=== PATIENT | female | born 1955 | race Caucasian/White ===

== ENCOUNTER 2022-10-03 10:52 | Emergency (ER) | payer MEDICARE, OTHER ==
[~2022-10-03] VITALS: Ht 162.6 cm; Wt 93.0 kg
[2022-10-03] MEDS ORDERED: IV NS 0.9% 500 ML BAG IV ONE (11:00)
[2022-10-03 11:26] LABS: BASOPHILS # (AUTO) 0.1 K/uL (0.0-0.2); BASOPHILS % (AUTO) 0.8 % (0.0-2.0); HEMATOCRIT 34 % (33-45); HEMOGLOBIN 11.3 g/dL (11.5-14.8); LYMPHOCYTES # (AUTO) 1.9 K/uL (0.8-4.8); LYMPHOCYTES % (AUTO) 18.6 % (20.0-44.0); MEAN CORPUSCULAR HGB CONC 33 g/dl (31.0-36.0); MEAN CORPUSCULAR VOLUME 91 fL (82-100); MONOCYTES # (AUTO) 0.7 K/uL (0.1-1.30); MONOCYTES % (AUTO) 7.2 % (2.0-12.0); NEUTROPHILS # (AUTO) 7.1 K/uL (1.8-8.9); NEUTROPHILS % (AUTO) 69.4 % (43.0-81.0); PLATELET COUNT (AUTO) 336 K/uL (150-450); RED BLOOD CELL COUNT(AUTO) 3.77 MIL/uL (4.0-5.2); WHITE BLOOD COUNT (AUTO) 10.2 K/uL (4.3-11.0)
[2022-10-03 11:29] LABS: CALCIUM, SERUM 9.8 mg/dL (8.5-10.1); CARBON DIOXIDE 23 mmol/L (21-32); CHLORIDE 101 mmol/L (98-107); CREATININE 1.5 mg/dL (0.6-1.3); GLUCOSE 175 mg/dL (74-106); POTASSIUM 3.8 mmol/L (3.5-5.1); SODIUM SERUM 135 mmol/L (136-145); UREA NITROGEN, BLOOD 46 mg/dL (7-18)
[2022-10-03 11:35] LABS: ALANINE AMINOTRANSFERASE 12 U/L (12-78); ALBUMIN 2.7 g/dL (3.4-5.0); ALKALINE PHOSPHATASE 86 U/L (46-116); ASPARTATE AMINOTRANSFERASE 15 U/L (15-37); BILIRUBIN,DIRECT 0.2 mg/dL (0.0-0.2); BILIRUBIN,TOTAL 0.5 mg/dL (0.2-1.0)
[2022-10-03] MEDS ORDERED: SENN-261 PO (12:38)
[2022-10-03] MEDS ORDERED: GABA-532 PO (12:38)
[2022-10-03] MEDS ORDERED: FLUT1DIS5 IH (12:38)
[2022-10-03] MEDS ORDERED: DOCU100T2 PO (12:38)
[2022-10-03] MEDS ORDERED: INSU100V11 SQ (12:38)
[2022-10-03] MEDS ORDERED: MAG-5 PO (12:38)
[2022-10-03] MEDS ORDERED: MAGN400O6 PO (12:38)
[2022-10-03] MEDS ORDERED: ACET325C7 PO (12:38)
[2022-10-03] MEDS ORDERED: BISA10SU11 RC (12:38)
[2022-10-03] MEDS ORDERED: TIZA-180 PO (12:38)
[2022-10-03] MEDS ORDERED: ASPI1TAB2 PO (12:38)
[2022-10-03] MEDS ORDERED: ARIP10TA9 PO (12:38)
[2022-10-03] MEDS ORDERED: MULT-754 PO (12:38)
[2022-10-03] MEDS ORDERED: NA P133E RC (12:38)
[2022-10-03] MEDS ORDERED: ATOR20TA PO (12:38)
[2022-10-03] MEDS ORDERED: CARV6.252 PO (12:38)
[2022-10-03] MEDS ORDERED: HEPA500039 SQ (12:38)
[2022-10-03] MEDS ORDERED: VENTOLIN HFA INH (12:38)
[2022-10-03] MEDS ORDERED: FERR325T23 PO (12:38)
[2022-10-03] MEDS ORDERED: CHOL100043 PO (12:38)
[2022-10-03] MEDS ORDERED: DICLOFENAC SODIUM TP (12:38)
[2022-10-03] MEDS ORDERED: GLUC1KIT IM (12:38)
[2022-10-03] MEDS ORDERED: IODOPHOR BNOSTRILS (12:38)
[2022-10-03] MEDS ORDERED: FURO-145 PO (12:38)
[2022-10-03] MEDS ORDERED: BLOO-668 IN (12:38)
--- NOTE | 2022-10-03 12:59 | NUR ---
CALLED [facility] FOR TRANSPORT CREW AT DESTINATION IN ER AND WILL TRANSPORT AFTER CLEARING CURRENT CALL.
--- NOTE | 2022-10-03 13:17 | NUR ---
REPORT GIVEN TO EMT FOR [facility] AND TRANSPORT
[2022-10-03 13:20] VITALS: BP 134/70; TEMP 98; O2SAT 98
== END 2022-10-03 13:21 | disposition home or self-care (01) ==
LOC: ER 10:54
DX: R20.0 Anesthesia of skin (principal); E11.22 Type 2 diabetes mellitus with diabetic chronic kidney disease; N18.9 Chronic kidney disease, unspecified; I50.9 Heart failure, unspecified; E66.01 Morbid (severe) obesity due to excess calories; F20.9 Schizophrenia, unspecified; F32.9 Major depressive disorder, single episode, unspecified; E78.5 Hyperlipidemia, unspecified; D64.9 Anemia, unspecified; Z88.2 Allergy status to sulfonamides; Z88.1 Allergy status to other antibiotic agents; Z68.35 Body mass index [BMI] 35.0-35.9, adult
CPT/HCPCS: 36415; 71045-TC; 80048-TC; 80076-TC; 83605-TC; 84484-TC; 85025-TC; 85730-TC; 87040-TC

== ENCOUNTER 2023-02-06 15:45 | Inpatient (IN) | payer MEDICARE, OTHER ==
[~2023-02-06] VITALS: Ht 167.6 cm; Wt 78.0 kg
[~2023-02-06 15:45] MED LIST: ACET325C7 PO; ARIP10TA9 PO; ASPI1TAB2 PO; ATOR20TA PO; BISA10SU11 RC; BLOO-668 IN; CARV6.252 PO; CHOL100043 PO; DICLOFENAC SODIUM TP; DOCU100T2 PO; FERR325T23 PO; FLUT1DIS5 IH; FURO-145 PO; GABA-532 PO; GLUC1KIT IM; HEPA500039 SQ; INSU100V11 SQ; IODOPHOR BNOSTRILS; MAG-5 PO; MAGN400O6 PO; MULT-754 PO; NA P133E RC; SENN-261 PO; TIZA-180 PO; VENTOLIN HFA INH
[2023-02-06] MEDS ORDERED: ACETAMINOPHEN 325 MG TABLET PO ONE (16:00)
[2023-02-06] MEDS ORDERED: VANCOMYCIN 1 GM in IV D5W 250 ML IV ONE (16:00)
[2023-02-06] MEDS ORDERED: CEFEPIME 1 GM in IV D5W 50 ML IV ONE ×2 (16:00→21:00)
[2023-02-06] MEDS ORDERED: IV NS 0.9% 1,000 ML BAG IV ONE (16:00)
[2023-02-06] MEDS ORDERED: [UNRECOGNIZED DRUG - CODE] TP (16:22)
[2023-02-06] MEDS ORDERED: ENOX30DI SQ (16:22)
[2023-02-06] MEDS ORDERED: ALBU18HF2 IH (16:22)
[2023-02-06] MEDS ORDERED: TIZA-180 PO (16:22)
[2023-02-06] MEDS ORDERED: NUT.237L30 PO (16:22)
[2023-02-06] MEDS ORDERED: ACETAMINOPHEN ES 500 MG TABLET ONE (16:23)
[2023-02-06 16:41] LABS: BASOPHILS % (AUTO) 0.5 % (0.0-2.0); EOSINOPHILS % (AUTO) 0.2 % (0.0-6.0); HEMATOCRIT 36 % (33-45); HEMOGLOBIN 11.7 g/dL (11.5-14.8); LYMPHOCYTES # (AUTO) 1.2 K/uL (0.8-4.8); LYMPHOCYTES % (AUTO) 13.4 % (20.0-44.0); MEAN CORPUSCULAR HEMOGLOBIN 30 PG (26.0-33.0); MEAN CORPUSCULAR HGB CONC 32 g/dl (31.0-36.0); MEAN CORPUSCULAR VOLUME 92 fL (82-100); MONOCYTES # (AUTO) 0.9 K/uL (0.1-1.30); MONOCYTES % (AUTO) 9.9 % (2.0-12.0); NEUTROPHILS # (AUTO) 6.8 K/uL (1.8-8.9); PLATELET COUNT (AUTO) 239 K/uL (150-450); RED BLOOD CELL COUNT(AUTO) 3.95 MIL/uL (4.0-5.2); RED CELL DISTRIBUTION WIDTH 13.4 % (11.5-15.0); WHITE BLOOD COUNT (AUTO) 8.9 K/uL (4.3-11.0)
[2023-02-06 16:51] LABS: INR 1.09 (0.91-1.10); PARTIAL THROMBOPLASTIN TIME 40.1 SEC (24.3-34.3); PROTHROMBIN TIME 11.5 SECS (9.2-11.1)
[2023-02-06 17:02] LABS: CALCIUM, SERUM 8.8 mg/dL (8.5-10.1); CARBON DIOXIDE 21 mmol/L (21-32); CHLORIDE 106 mmol/L (98-107); CREATININE 1.2 mg/dL (0.6-1.3); GLUCOSE 133 mg/dL (74-106); SODIUM SERUM 137 mmol/L (136-145); UREA NITROGEN, BLOOD 25 mg/dL (7-18)
[2023-02-06 17:08] LABS: ALANINE AMINOTRANSFERASE 9 U/L (12-78); ALBUMIN 2.7 g/dL (3.4-5.0); ALKALINE PHOSPHATASE 104 U/L (46-116); ASPARTATE AMINOTRANSFERASE 20 U/L (15-37); BILIRUBIN,DIRECT 0.2 mg/dL (0.0-0.2); BILIRUBIN,TOTAL 0.4 mg/dL (0.2-1.0); TOTAL PROTEIN, SERUM 7.3 g/dL (6.4-8.2)
[2023-02-06 17:10] LABS: LACTIC ACID 1.1 mmol/L (0.4-2.0)
[2023-02-06] MEDS ORDERED: ACETAMINOPHEN 325 MG TABLET PO PRN (17:30)
[2023-02-06] MEDS ORDERED: MAGNESIUM HYDROXIDE 30 ML UDC PO PRN (17:30)
[2023-02-06] MEDS ORDERED: Z GUARD REMEDY 4 OZ OINT TP PRN (17:30)
[2023-02-06] MEDS ORDERED: hydrALAZINE HCL IV 20 MG VIAL IV PRN (17:30)
[2023-02-06] MEDS ORDERED: ONDANSETRON HCL/PF 4 MG/2 ML VIAL IVP PRN (17:30)
[2023-02-06] MEDS ORDERED: IV NS 0.9% 1,000 ML IV PRN (17:30)
[2023-02-06 20:40] VITALS: BP 114/49; TEMP 98.4; O2SAT 97
[2023-02-06] MEDS ORDERED: ENOXAPARIN SODIUM 40 MG/0.4 ML DISP.SYRIN SQ SCH (21:00)
[2023-02-06 21:44] VITALS: BP 114/49; TEMP 98.4; O2SAT 97
[2023-02-07] VITALS (7 sets, daily range): BP systolic 125–161; BP diastolic 50–94; TEMP 97.9–99.5; O2SAT 94–100
[2023-02-07] MEDS: VANCOMYCIN HCL 0.75 GM in IV D5W 250 ML IV SCH ×2 (04:15→16:14)
[2023-02-07 07:08] LABS: BASOPHILS % (AUTO) 0.4 % (0.0-2.0); EOSINOPHILS # (AUTO) 0.1 K/uL (0.0-0.7); EOSINOPHILS % (AUTO) 0.9 % (0.0-6.0); HEMATOCRIT 37 % (33-45); HEMOGLOBIN 11.6 g/dL (11.5-14.8); LYMPHOCYTES # (AUTO) 1.3 K/uL (0.8-4.8); LYMPHOCYTES % (AUTO) 15.7 % (20.0-44.0); MEAN CORPUSCULAR HEMOGLOBIN 30 PG (26.0-33.0); MEAN CORPUSCULAR HGB CONC 32 g/dl (31.0-36.0); MEAN CORPUSCULAR VOLUME 93 fL (82-100); MONOCYTES # (AUTO) 1.5 K/uL (0.1-1.30); NEUTROPHILS # (AUTO) 5.6 K/uL (1.8-8.9); PLATELET COUNT (AUTO) 171 K/uL (150-450); RED BLOOD CELL COUNT(AUTO) 3.92 MIL/uL (4.0-5.2); RED CELL DISTRIBUTION WIDTH 14.3 % (11.5-15.0); WHITE BLOOD COUNT (AUTO) 8.5 K/uL (4.3-11.0)
[2023-02-07] MEDS: PANTOPRAZOLE 40 MG TABLET.DR PO SCH ×2 (07:30→08:28)
[2023-02-07 07:35] LABS: CALCIUM, SERUM 8.8 mg/dL (8.5-10.1); CREATININE 1.1 mg/dL (0.6-1.3)
[2023-02-07 07:36] LABS: MAGNESIUM 2.2 mg/dL (1.8-2.4); PHOSPHORUS 3.5 mg/dL (2.5-4.9)
[2023-02-07 07:56] LABS: THYROID STIMULATING HORMONE 0.731 uIU/mL (0.358-3.74)
[2023-02-07] MEDS: CEFEPIME 2 GM in IV D5W 100 ML IV SCH ×2 (08:28→22:03)
[2023-02-07] MEDS ORDERED: HYDROGEL DRESSING 90 GM TUBE TP PRN (10:30)
[2023-02-07] MEDS ORDERED: BISACODYL SUPP (10 MG) 10 MG/SUPP.RECT SUPP.RECT RC PRN (11:30)
[2023-02-07] MEDS ORDERED: ALBUTEROL FS 2.5 MG/3 ML VIAL.NEB NEB PRN (11:30)
[2023-02-07] MEDS ORDERED: IPRATROPIUM NEB FS 0.5 MG/2.5 ML AMPUL.NEB NEB PRN (11:30)
[2023-02-07] MEDS: HYDROGEL DRESSING 90 GM TUBE TP SCH (11:36)
[2023-02-07] MEDS: BLOOD SUGAR DIAGNOSTIC 1 EACH STRIP IN SCH ×3 (11:48→22:22)
[2023-02-07] MEDS: DEXTROSE 50%-WATER 50 ML DISP.SYRIN IV PRN (11:52)
[2023-02-07] MEDS ORDERED: ACETAMINOPHEN 325 MG TABLET PO PRN (12:00)
[2023-02-07] MEDS: ENOXAPARIN SODIUM 40 MG/0.4 ML DISP.SYRIN SQ SCH (12:34)
[2023-02-07] MEDS ORDERED: [UNRECOGNIZED DRUG - OTHER] PO SCH (13:00)
[2023-02-07] MEDS ORDERED: NUT TX GLUC INTOLER LAC FR SOY PO SCH (13:00)
[2023-02-07] MEDS: ALBUTEROL FS 2.5 MG/3 ML VIAL.NEB NEB SCH ×2 (13:30→19:30)
[2023-02-07] MEDS: TIZANIDINE HCL 4 MG TABLET PO SCH (17:00)
[2023-02-07] MEDS: GLUCERNA SHAKE 237 ML CAN PO SCH (17:00)
[2023-02-07] MEDS: CHOLECALCIFEROL 1,000 UNIT TABLET (VIT D3) PO SCH (17:00)
[2023-02-07] MEDS: GABAPENTIN 100 MG CAPSULE PO SCH (17:00)
[2023-02-07] MEDS: BUDESONIDE RESPULE INH 0.5 MG/2 ML AMPUL.NEB IH SCH (17:00)
[2023-02-07 19:15] LABS: APPEARANCE,URINE CLOUDY (CLEAR); BILIRUBIN,URINE NEGATIVE (NEGATIVE); BLOOD, URINE 1+ Ery/uL (NEGATIVE); COLOR,URINE YELLOW (YELLOW); KETONES,URINE NEGATIVE (NEGATIVE); LEUKOCYTE ESTERASE ,URINE 3+ (NEGATIVE); NITRITE, URINE NEGATIVE (NEGATIVE); PH,URINE 5.5 (5.0-8.0); PROTEIN,URINE 1+ mg/dl (NEGATIVE); UGLUCOSE NEGATIVE (NEGATIVE); UROBILINOGEN,URINE 0.2 EU/dL (0.2)
[2023-02-07 19:22] LABS: ADD URINE CULTURE YES; BACTERIA,URINE 3+ /HPF (None Seen); RBC,URINE 21-50 /HPF (0-2); SQUAMOUS EPITHELIAL CELL,UR 0-2 /HPF (None Seen); WBC,URINE 51-80 /HPF (0-3)
[2023-02-07] MEDS: INSULIN REGULAR, HUMAN 100 UNIT/ML 3 ML VIAL SQ PRN (22:24)
[2023-02-07] MEDS: SENNOSIDES 8.6 MG TABLET PO SCH (22:41)
[2023-02-07] MEDS: ATORVASTATIN 10 MG TABLET PO SCH (22:41)
[2023-02-08] VITALS (9 sets, daily range): BP systolic 99–145; BP diastolic 57–72; TEMP 97.9–98.4; O2SAT 95–100
[2023-02-08] MEDS: ALBUTEROL FS 2.5 MG/3 ML VIAL.NEB NEB SCH ×4 (01:30→19:30)
[2023-02-08 04:35] LABS: CALCIUM, SERUM 8.5 mg/dL (8.5-10.1); CREATININE 1.1 mg/dL (0.6-1.3); MAGNESIUM 1.8 mg/dL (1.8-2.4); PHOSPHORUS 2.5 mg/dL (2.5-4.9); POTASSIUM 3.8 mmol/L (3.5-5.1)
[2023-02-08] MEDS: VANCOMYCIN HCL 0.75 GM in IV D5W 250 ML IV SCH (05:00)
[2023-02-08 05:10] LABS: BASOPHILS # (AUTO) 0.1 K/uL (0.0-0.2); BASOPHILS % (AUTO) 0.9 % (0.0-2.0); EOSINOPHILS % (AUTO) 0.3 % (0.0-6.0); HEMATOCRIT 35 % (33-45); HEMOGLOBIN 11.4 g/dL (11.5-14.8); LYMPHOCYTES # (AUTO) 0.9 K/uL (0.8-4.8); LYMPHOCYTES % (AUTO) 15.1 % (20.0-44.0); MEAN CORPUSCULAR HEMOGLOBIN 30 PG (26.0-33.0); MEAN CORPUSCULAR HGB CONC 33 g/dl (31.0-36.0); MEAN CORPUSCULAR VOLUME 90 fL (82-100); MONOCYTES # (AUTO) 0.6 K/uL (0.1-1.30); MONOCYTES % (AUTO) 10.4 % (2.0-12.0); NEUTROPHILS # (AUTO) 4.2 K/uL (1.8-8.9); NEUTROPHILS % (AUTO) 73.3 % (43.0-81.0); PLATELET COUNT (AUTO) 185 K/uL (150-450); RED BLOOD CELL COUNT(AUTO) 3.84 MIL/uL (4.0-5.2); RED CELL DISTRIBUTION WIDTH 13.8 % (11.5-15.0); WHITE BLOOD COUNT (AUTO) 5.8 K/uL (4.3-11.0)
[2023-02-08] MEDS: BLOOD SUGAR DIAGNOSTIC 1 EACH STRIP IN SCH ×4 (06:40→21:21)
[2023-02-08] MEDS: INSULIN REGULAR, HUMAN 100 UNIT/ML 3 ML VIAL SQ PRN (06:41)
[2023-02-08] MEDS: BUDESONIDE RESPULE INH 0.5 MG/2 ML AMPUL.NEB IH SCH ×2 (07:14→17:00)
[2023-02-08] MEDS: PANTOPRAZOLE 40 MG TABLET.DR PO SCH (07:46)
[2023-02-08] MEDS: GLUCERNA SHAKE 237 ML CAN PO SCH ×2 (08:41→17:12)
[2023-02-08] MEDS: GABAPENTIN 100 MG CAPSULE PO SCH ×3 (09:00→17:12)
[2023-02-08] MEDS: ARIPIPRAZOLE 5 MG TABLET PO SCH ×2 (09:00→09:02)
[2023-02-08] MEDS: CHOLECALCIFEROL 1,000 UNIT TABLET (VIT D3) PO SCH ×3 (09:00→17:12)
[2023-02-08] MEDS: DOCUSATE SODIUM 100 MG CAPSULE PO SCH ×2 (09:00→09:02)
[2023-02-08] MEDS: TIZANIDINE HCL 4 MG TABLET PO SCH ×3 (09:00→17:12)
[2023-02-08] MEDS: MULTIVITAMINS,THERAGRAN 1 UDTAB TABLET PO SCH (09:01)
[2023-02-08] MEDS: FUROSEMIDE 20 MG TABLET PO SCH (09:03)
[2023-02-08] MEDS: CEFEPIME 2 GM in IV D5W 100 ML IV SCH ×2 (09:04→23:16)
[2023-02-08] MEDS: HYDROGEL DRESSING 90 GM TUBE TP SCH (10:46)
[2023-02-08] MEDS: ENOXAPARIN SODIUM 40 MG/0.4 ML DISP.SYRIN SQ SCH (12:32)
[2023-02-08] MEDS ORDERED: VANCOMYCIN HCL 0.75 GM in IV D5W 250 ML IV SCH (17:00)
[2023-02-08] MEDS: DEXTROSE 50%-WATER 50 ML DISP.SYRIN IV PRN (21:20)
[2023-02-08] MEDS: ATORVASTATIN 10 MG TABLET PO SCH (21:35)
[2023-02-08] MEDS: SENNOSIDES 8.6 MG TABLET PO SCH (21:35)
[2023-02-09] MEDS: ALBUTEROL FS 2.5 MG/3 ML VIAL.NEB NEB SCH ×4 (01:30→19:30)
[2023-02-09 02:14] VITALS: O2SAT 99
[2023-02-09] MEDS: DEXTROSE 50%-WATER 50 ML DISP.SYRIN IV PRN (06:11)
[2023-02-09] MEDS: BLOOD SUGAR DIAGNOSTIC 1 EACH STRIP IN SCH ×4 (06:50→21:35)
[2023-02-09 07:30] VITALS: BP_SYST 112; BP_SYST 118; BP_DIAS 66; BP_DIAS 69; TEMP 98.2; TEMP 98.4; O2SAT 100; O2SAT 98
[2023-02-09] MEDS: ARIPIPRAZOLE 5 MG TABLET PO SCH (08:20)
[2023-02-09] MEDS: MULTIVITAMINS,THERAGRAN 1 UDTAB TABLET PO SCH (08:20)
[2023-02-09] MEDS: DOCUSATE SODIUM 100 MG CAPSULE PO SCH (08:20)
[2023-02-09] MEDS: CHOLECALCIFEROL 1,000 UNIT TABLET (VIT D3) PO SCH ×2 (08:20→16:01)
[2023-02-09] MEDS: FERROUS SULFATE (325 MG) 325 MG/TAB TABLET PO SCH (08:20)
[2023-02-09] MEDS: TIZANIDINE HCL 4 MG TABLET PO SCH ×2 (08:21→16:01)
[2023-02-09] MEDS: GLUCERNA SHAKE 237 ML CAN PO SCH ×2 (08:21→17:09)
[2023-02-09] MEDS: PANTOPRAZOLE 40 MG TABLET.DR PO SCH (08:21)
[2023-02-09] MEDS: FUROSEMIDE 20 MG TABLET PO SCH (08:21)
[2023-02-09] MEDS: GABAPENTIN 100 MG CAPSULE PO SCH ×2 (08:21→16:01)
[2023-02-09] MEDS: CEFEPIME 2 GM in IV D5W 100 ML IV SCH ×2 (08:24→20:09)
[2023-02-09] MEDS: IV D5/ 0.9% NACL 1,000 ML IV PRN ×2 (09:41→21:28)
[2023-02-09] MEDS: HYDROGEL DRESSING 90 GM TUBE TP SCH (11:11)
[2023-02-09] MEDS: ENOXAPARIN SODIUM 40 MG/0.4 ML DISP.SYRIN SQ SCH (11:31)
[2023-02-09] MEDS: BUDESONIDE RESPULE INH 0.5 MG/2 ML AMPUL.NEB IH SCH (19:30)
[2023-02-09 20:00] VITALS: BP 140/66; TEMP 98.4; O2SAT 97
[2023-02-09] MEDS: ATORVASTATIN 10 MG TABLET PO SCH ×2 (21:16→21:20)
[2023-02-09] MEDS: SENNOSIDES 8.6 MG TABLET PO SCH ×2 (21:17→21:20)
[2023-02-10] MEDS: ALBUTEROL FS 2.5 MG/3 ML VIAL.NEB NEB SCH ×4 (01:03→19:30)
[2023-02-10] MEDS: BLOOD SUGAR DIAGNOSTIC 1 EACH STRIP IN SCH ×4 (06:30→22:39)
[2023-02-10 07:30] VITALS: BP 149/68; TEMP 98.1; O2SAT 99
[2023-02-10] MEDS: PANTOPRAZOLE 40 MG TABLET.DR PO SCH (07:30)
[2023-02-10] MEDS: BUDESONIDE RESPULE INH 0.5 MG/2 ML AMPUL.NEB IH SCH ×2 (07:30→19:30)
[2023-02-10] MEDS: GLUCERNA SHAKE 237 ML CAN PO SCH ×2 (07:58→16:36)
[2023-02-10] MEDS: DOCUSATE SODIUM 100 MG CAPSULE PO SCH (08:00)
[2023-02-10] MEDS: MULTIVITAMINS,THERAGRAN 1 UDTAB TABLET PO SCH (08:00)
[2023-02-10] MEDS: FUROSEMIDE 20 MG TABLET PO SCH (08:00)
[2023-02-10] MEDS: ARIPIPRAZOLE 5 MG TABLET PO SCH (08:00)
[2023-02-10] MEDS: GABAPENTIN 100 MG CAPSULE PO SCH ×2 (08:00→16:36)
[2023-02-10] MEDS: CHOLECALCIFEROL 1,000 UNIT TABLET (VIT D3) PO SCH ×2 (08:00→16:36)
[2023-02-10] MEDS: TIZANIDINE HCL 4 MG TABLET PO SCH ×2 (08:01→16:38)
[2023-02-10] MEDS: CEFEPIME 2 GM in IV D5W 100 ML IV SCH ×2 (10:27→21:50)
[2023-02-10] MEDS: HYDROGEL DRESSING 90 GM TUBE TP SCH (10:31)
[2023-02-10] MEDS: ENOXAPARIN SODIUM 40 MG/0.4 ML DISP.SYRIN SQ SCH (11:57)
[2023-02-10] MEDS: THERAHONEY GEL 1.5 OZ TUBE TP SCH (13:47)
[2023-02-10 16:00] VITALS: BP 130/75; TEMP 99.2; O2SAT 98
[2023-02-10] MEDS: IV D5/ 0.9% NACL 1,000 ML IV PRN (17:35)
[2023-02-10 20:09] VITALS: O2SAT 96
[2023-02-10 21:36] VITALS: BP 148/64; TEMP 98.6; O2SAT 97
[2023-02-10] MEDS: ATORVASTATIN 10 MG TABLET PO SCH (22:13)
[2023-02-10] MEDS: SENNOSIDES 8.6 MG TABLET PO SCH (22:14)
[2023-02-11] VITALS (9 sets, daily range): BP systolic 89–138; BP diastolic 55–82; TEMP 97.7–98.7; O2SAT 94–100
[2023-02-11] MEDS: ALBUTEROL FS 2.5 MG/3 ML VIAL.NEB NEB SCH ×4 (00:44→20:06)
[2023-02-11] MEDS: BUDESONIDE RESPULE INH 0.5 MG/2 ML AMPUL.NEB IH SCH ×2 (07:35→20:06)
[2023-02-11] MEDS: BLOOD SUGAR DIAGNOSTIC 1 EACH STRIP IN SCH ×4 (08:54→22:32)
[2023-02-11] MEDS: PANTOPRAZOLE 40 MG TABLET.DR PO SCH (08:56)
[2023-02-11] MEDS: CHOLECALCIFEROL 1,000 UNIT TABLET (VIT D3) PO SCH ×2 (08:57→16:40)
[2023-02-11] MEDS: GLUCERNA SHAKE 237 ML CAN PO SCH ×2 (08:57→16:40)
[2023-02-11] MEDS: TIZANIDINE HCL 4 MG TABLET PO SCH ×2 (08:57→16:40)
[2023-02-11] MEDS: FERROUS SULFATE (325 MG) 325 MG/TAB TABLET PO SCH (08:57)
[2023-02-11] MEDS: DOCUSATE SODIUM 100 MG CAPSULE PO SCH (08:57)
[2023-02-11] MEDS: MULTIVITAMINS,THERAGRAN 1 UDTAB TABLET PO SCH (08:58)
[2023-02-11] MEDS: GABAPENTIN 100 MG CAPSULE PO SCH ×2 (08:58→16:40)
[2023-02-11] MEDS: ARIPIPRAZOLE 5 MG TABLET PO SCH (08:58)
[2023-02-11] MEDS: FUROSEMIDE 20 MG TABLET PO SCH (08:58)
[2023-02-11] MEDS: THERAHONEY GEL 1.5 OZ TUBE TP SCH (09:00)
[2023-02-11] MEDS: HYDROGEL DRESSING 90 GM TUBE TP SCH (09:00)
[2023-02-11] MEDS: CEFEPIME 2 GM in IV D5W 100 ML IV SCH ×2 (09:59→20:13)
[2023-02-11] MEDS ORDERED: LORAZEPAM 0.5 MG TABLET PO PRN (10:00)
[2023-02-11] MEDS: ENOXAPARIN SODIUM 40 MG/0.4 ML DISP.SYRIN SQ SCH (12:06)
[2023-02-11] MEDS: IV D5/ 0.9% NACL 1,000 ML IV PRN (17:46)
[2023-02-11] MEDS ORDERED: MIRTAZAPINE 15 MG TABLET PO SCH (22:00)
[2023-02-11] MEDS: ATORVASTATIN 10 MG TABLET PO SCH (22:12)
[2023-02-11] MEDS: SENNOSIDES 8.6 MG TABLET PO SCH (22:12)
[2023-02-12] VITALS (9 sets, daily range): BP systolic 105–112; BP diastolic 48–50; TEMP 98.6; O2SAT 94–98
[2023-02-12] MEDS: ALBUTEROL FS 2.5 MG/3 ML VIAL.NEB NEB SCH ×3 (02:04→14:01)
[2023-02-12] MEDS: IV D5/ 0.9% NACL 1,000 ML IV PRN (05:16)
[2023-02-12] MEDS: BLOOD SUGAR DIAGNOSTIC 1 EACH STRIP IN SCH ×2 (06:12→12:25)
[2023-02-12] MEDS: PANTOPRAZOLE 40 MG TABLET.DR PO SCH (07:30)
[2023-02-12] MEDS: BUDESONIDE RESPULE INH 0.5 MG/2 ML AMPUL.NEB IH SCH (08:26)
[2023-02-12] MEDS: THERAHONEY GEL 1.5 OZ TUBE TP SCH (09:00)
[2023-02-12] MEDS: TIZANIDINE HCL 4 MG TABLET PO SCH (09:00)
[2023-02-12] MEDS: MULTIVITAMINS,THERAGRAN 1 UDTAB TABLET PO SCH (09:00)
[2023-02-12] MEDS: HYDROGEL DRESSING 90 GM TUBE TP SCH (09:00)
[2023-02-12] MEDS: CHOLECALCIFEROL 1,000 UNIT TABLET (VIT D3) PO SCH (09:00)
[2023-02-12] MEDS: FUROSEMIDE 20 MG TABLET PO SCH ×2 (09:00→10:39)
[2023-02-12] MEDS: DOCUSATE SODIUM 100 MG CAPSULE PO SCH (09:00)
[2023-02-12] MEDS: ARIPIPRAZOLE 5 MG TABLET PO SCH (09:00)
[2023-02-12] MEDS: GABAPENTIN 100 MG CAPSULE PO SCH (09:00)
[2023-02-12] MEDS: GLUCERNA SHAKE 237 ML CAN PO SCH (09:13)
[2023-02-12] MEDS: CEFEPIME 2 GM in IV D5W 100 ML IV SCH (09:18)
[2023-02-12] MEDS: ENOXAPARIN SODIUM 40 MG/0.4 ML DISP.SYRIN SQ SCH (12:00)
== END 2023-02-12 15:30 | DRG 871 ==
LOC: ER 15:55 → TELE 19:56 → MED 02-08 13:23
PROVIDERS: ADMIT Nurse Practitioner Family; ATTEND Internal Medicine
DX: A41.9 Sepsis, unspecified organism (principal); L89.153 Pressure ulcer of sacral region, stage 3; I13.0 Hypertensive heart and chronic kidney disease with heart failure and stage 1 through stage 4 chronic kidney disease, or unspecified chronic kidney disease; E44.0 Moderate protein-calorie malnutrition; I50.22 Chronic systolic (congestive) heart failure; N39.0 Urinary tract infection, site not specified; F03.93 Unspecified dementia, unspecified severity, with mood disturbance; N18.9 Chronic kidney disease, unspecified; E11.22 Type 2 diabetes mellitus with diabetic chronic kidney disease; E78.5 Hyperlipidemia, unspecified; D64.9 Anemia, unspecified; E88.09 Other disorders of plasma-protein metabolism, not elsewhere classified; J44.9 Chronic obstructive pulmonary disease, unspecified; Z79.4 Long term (current) use of insulin; Z88.2 Allergy status to sulfonamides; L89.156 Pressure-induced deep tissue damage of sacral region; Z20.822 Contact with and (suspected) exposure to COVID-19; Z68.27 Body mass index [BMI] 27.0-27.9, adult; F39 Unspecified mood [affective] disorder
CPT/HCPCS: 36415; 71045-TC; 80048-TC; 80076-TC; 80202-TC; 81001; 82962-TC; 83605-TC; 83735-TC; 84100-TC; 84443-TC; 84484-TC; 85025-TC; 85730-TC; 87040-TC; 87081-TC; 87086-TC; 94799-TC; A4223; A6248; C9803; G0378; J0692; J1650; J1815; J3370; J7030; J7040; J7042; J7050; J7060